=== PATIENT | male | born 1965 | race Caucasian/White ===

== ENCOUNTER 2021-12-16 07:09 | Day surgery (SDC) | payer MEDICARE, MEDICAID ==
[2021-12-16] MEDS ORDERED: Propofol 200 MG/20 ML SDV IV ONE (07:10)
[2021-12-16] MEDS ORDERED: Lactated Ringers 1,000 ML IV SCH (07:15)
[2021-12-16] MEDS ORDERED: Sodium Chloride 0.9% 10 ML Syringe FLUSH PRN (07:15)
== END 2021-12-16 10:33 | disposition home or self-care (01) ==
LOC: FB.SDS 07:09
PROVIDERS: ATTEND Surgery
DX: B37.81 Candidal esophagitis (principal); R13.10 Dysphagia, unspecified; E10.65 Type 1 diabetes mellitus with hyperglycemia; E10.42 Type 1 diabetes mellitus with diabetic polyneuropathy; E55.9 Vitamin D deficiency, unspecified; E10.22 Type 1 diabetes mellitus with diabetic chronic kidney disease; N18.6 End stage renal disease; D63.1 Anemia in chronic kidney disease; I12.0 Hypertensive chronic kidney disease with stage 5 chronic kidney disease or end stage renal disease; Z87.891 Personal history of nicotine dependence; Z79.899 Other long term (current) drug therapy; Z79.01 Long term (current) use of anticoagulants; Z88.8 Allergy status to other drugs, medicaments and biological substances
CPT/HCPCS: 00731-QZ; 82947; 87220; 88305; 88312; J2704; J7120